=== PATIENT | male | born 1960 | race Caucasian/White ===

== ENCOUNTER 2018-09-23 09:37 | Inpatient (IN) | payer BC ==
[2018-09-23] MEDS ORDERED: Aspirin 81 mg CHEW TAB* 81 MG TAB.CHEW PO ONE (09:51)
--- NOTE | 2018-09-23 09:52 | ED ---
HPI Chest Pain - HPI Summary HPI Summary: This pt is a 58 y/o male presenting to [facility] c/o intermittent chest pain since 8 weeks ago. Pt states the first incident occurred while he was walking to an appointment. He notes he had cold then and had been doing a lot of cardio. Denies hx of asthma. Today he states he woke up feeling uncomfortable with chest pain. He describes chest pain as pressure and unable to take a deep full breath. Denies fever, nausea, vomiting, diaphoresis, SOB, lightheadedness. Pr reports recent stress with family for the past 8 weeks. Currently he rates his pain 1/10 in severity. PMHx: HTN. Denies hx of OR. Pt quit smoking 10 years ago and quit drinking alcohol 15 years ago. FHx of OR but not at his age of 58. - History of Current Complaint Chief Complaint: EDChestPainROMI Time Seen by Provider: 09/23/18 09:44 Hx Obtained From: Patient Onset/Duration: Started Weeks Ago, Still Present Timing: Intermittent, Lasting Weeks Current Severity: Mild Pain Intensity: 1 Pain Scale Used: 0-10 Numeric Chest Pain Location: Diffuse Chest Pain Radiates: No Character: Pressure/Squeezing - Pressure Aggravating Factor(s): Exertion Alleviating Factor(s): Nothing Associated Signs and Symptoms: Positive: Chest Pain, Recent Stress. Negative: Dizziness, Shortness of Breath, Fever, Chills, Lightheadedness, Diaphoresis, Nausea, Vomiting - Allergy/Home Medications Allergies/Adverse Reactions: Allergies Allergy/AdvReac Type Severity Reaction Status Date / Time No Known Allergies Allergy Verified 09/23/18 09:43 Home Medications: Home Medications Dexmethylphenidate HCl [Focalin] 2.5 mg PO BID 09/23/18 [History Confirmed 09/23] Eszopiclone (NF) [Lunesta (NF)] 3 mg PO BEDTIME 09/23/18 [History Confirmed ] Gabapentin CAP(*) [Neurontin 300 CAP(*)] 900 mg PO BEDTIME 09/23/18 [History Confirmed 09/23/18] Ibuprofen TAB* [Advil TAB*] 200 mg PO Q6H PRN 09/23/18 [History Confirmed ] Lisinopril TAB* [Prinivil TAB*] 5 mg PO DAILY 09/23/18 [History Confirmed ] Zolpidem TAB* [Ambien TAB*] 2.5 mg PO BEDTIME PRN 09/23/18 [History Confirmed ] PMH/Surg Hx/FS Hx/Imm Hx Endocrine/Hematology History: Denies: Hx Diabetes Cardiovascular History: Reports: Hx Hypertension Respiratory History: Denies: Hx Asthma Infectious Disease History: No Infectious Disease History: Reports: Traveled Outside the [place] in Last 30 Days - [place] - Family History Known Family History: Negative: Cardiac Disease, Hypertension, Diabetes Family History: FHx of OR but not at his current age of 58. - Social History Alcohol Use: None Alcohol Amount: quit drinking 15 years ago Substance Use Type: Reports: None Smoking Status (MU): Former Smoker - quit 10 years ago Review of Systems Negative: Fever, Chills, Skin Diaphoresis Positive: Chest Pain Negative: Shortness Of Breath Negative: Vomiting, Nausea Neurological: Other - NEG: dizziness, lightheadedness All Other Systems Reviewed And Are Negative: Yes Physical Exam - Summary Physical Exam Summary: VITAL SIGNS: Reviewed. GENERAL: Patient is a well-developed and nourished male who is lying comfortable in the stretcher. Patient is not in any acute respiratory distress. HEAD AND FACE: No signs of trauma. No ecchymosis, hematomas or skull depressions. No sinus tenderness. EYES: PERRLA, EOMI x 2, No injected conjunctiva, no nystagmus. EARS: Hearing grossly intact. Ear canals and tympanic membranes are within normal limits. MOUTH: Oropharynx within normal limits. NECK: Supple, trachea is midline, no adenopathy, no JVD, no carotid bruit, no c- spine tenderness, neck with full ROM. CHEST: Symmetric, no tenderness at palpation LUNGS: Clear to auscultation bilaterally. No wheezing or crackles. CVS: Regular rate and rhythm, S1 and S2 present, no murmurs or gallops appreciated. ABDOMEN: Soft, non-tender. No signs of distention. No rebound, no guarding, and no masses palpated. Bowel sounds are normal. EXTREMITIES: FROM in all major joints, no edema, no cyanosis or clubbing. NEURO: Alert and oriented x 3. No acute neurological deficits. Speech is normal and follows commands. SKIN: Dry and warm Triage Information Reviewed: Yes Vital Signs On Initial Exam: Initial Vitals Temp Pulse Resp BP Pulse Ox 97.5 F 71 16 185/110 98 09/23/18 09:38 09/23/18 09:38 09/23/18 09:38 09/23/18 09:38 09/23/18 09:38 Vital Signs Reviewed: Yes Diagnostics - Vital Signs Vital Signs Temp Pulse Resp BP Pulse Ox 09/23/18 09:38 97.5 F 71 16 185/110 98 - Laboratory Result Diagrams: 09/23/18 09:48 09/23/18 09:48 Lab Statement: Any lab studies that have been ordered have been reviewed, and results considered in the medical decision making process. - Radiology Chest XR Radiology Interpretation Completed By: Radiologist Summary of Radiographic Findings: IMPRESSION: No active cardiopulmonary disease. Dr. Newberry has reviewed this report. - EKG 09:53 Cardiac Rate: NL - at 66 bpm EKG Rhythm: Sinus Rhythm Summary of EKG Findings: No ST elevations. 10:31 Cardiac Rate: NL - at 63 bpm EKG Rhythm: Sinus Rhythm Summary of EKG Findings: T wave inversions in leads III and aVF. ST depressions in V5 and V6. Chest Pain Course/Dx - Course Assessment/Plan: This pt is a 58 y/o male presenting to [facility] c/o intermittent chest pain since 8 weeks ago. Pt states the first incident occurred while he was walking to an appointment. He notes he had cold then and had been doing a lot of cardio. Denies hx of asthma. Today he states he woke up feeling uncomfortable with chest pain. He describes chest pain as pressure and unable to take a deep full breath. Denies fever, nausea, vomiting, diaphoresis, SOB, lightheadedness. Pr reports recent stress with family for the past 8 weeks. Currently he rates his pain 1/10 in severity. PMHx: HTN. Denies hx of OR. Pt quit smoking 10 years ago and quit drinking alcohol 15 years ago. FHx of OR but not at his age of 58. Blood work without any significant abnormality except for troponin of 0.44. EKG shows normal sinus rhythm without any ST elevations. Patient has inverted T waves in leads I and aVL, and ST depressions in V4 and V5. Chest x-ray impression: No active cardiopulmonary disease. Initially the patient reported that the pain was only 1 out of 10. In the ED course the patient was given aspirin, metoprolol and nitroglycerin. After these medications the pain has subsided. Because of increased troponin I gave the patient heparin. At this point I discussed my physical exam, findings and test results with Dr. Rodriguez from cardiology who will come and consult for this patient. The patient continues to be asymptomatic and he is hemodynamically stable. I discussed my physical exam, findings and test results with Dr. Anglin from the hospitalist services and he agrees to admit patient to his services. Patient is hemodynamically stable, alert and oriented x 3. - Chest Pain Differential Diagnosis/HQI/PQRI: Acute OR, ACS, Angina, Aortic Aneurysm, CHF, Chest Wall, GI Disease, Lower Respiratory Infection, Pulmonary Edema - Diagnoses Provider Diagnoses: Acute coronary syndrome, NSTEMI (non-ST elevated myocardial infarction) - Provider Notifications Discussed Care Of Patient With: Raymundo Rodriguez Time Discussed With Above Provider: 10:45 Instructed by Provider To: Other - I discussed the case with Dr. Rodriguez, geography department chair, who reports EKG is not a STEMI and he will come see the pt in the ED. [11:31] I discussed with Dr. Anglin, hospitalist, who accepted pt for admission. - Critical Care Time Critical Care Time: 75-104 min Discharge - Sign-Out/Discharge Documenting (check all that apply): Patient Departure - Admit to [facility] - Discharge Plan Condition: Stable Disposition: ADMITTED TO [facility] - Billing Disposition and Condition Condition: STABLE Disposition: Admitted to [facility] - Attestation Statements Document Initiated by Meg: Yes Documenting Scribe: Sylvia Damon Provider For Whom Meg is Documenting (Include Credential): Janak Newberry MD Scribe Attestation: I, Sylvia Damon, scribed for Janak Newberry MD on 09/23/18 at 1828. Scribe Documentation Reviewed: Yes Provider Attestation: The documentation as recorded by the Sylvia ojeda accurately reflects the service I personally performed and the decisions made by me, Janak Newberry MD
[2018-09-23 10:00] LABS: ABS Basophils 0 10^3/ul (0-0.2); ABS Eosinophils 0.1 10^3/ul (0-0.6); ABS Lymphocytes 1.5 10^3/ul (1.0-4.8); ABS Monocytes 0.6 10^3/ul (0-0.8); ABS Neutrophils 2.8 10^3/ul (1.5-7.7); ABS Nucleated RBC 0 10^3/ul; Eosinophil % 1.3 % (0-6); Hematocrit 43 % (42-52); Hemoglobin 14.7 g/dl (14.0-18.0); Lymphocyte % 29.1 % (25-47); Mean Corpuscular HGB Conc 34 g/dl (31-36); Mean Corpuscular Hemoglobin 31 pg (27-31); Mean Corpuscular Volume 90 fL (80-94); Mean Platelet Volume 8.1 fL (7.4-10.4); Nucleated Red Blood Cells % 0.1; Platelet Count 230 10^3/ul (150-450); Red Blood Count 4.81 10^6/ul (4.00-5.40); Red Cell Distribution Width 13 % (10.5-15)
[2018-09-23 10:21] LABS: EGFR Non-African American 65.1 (>60)
[2018-09-23] MEDS ORDERED: Nitroglycerin TAB 0.4 MG* 0.4 MG TAB SL ONE (10:28)
[2018-09-23] MEDS ORDERED: Metoprolol Tartrate IV* 1 MG/ML 5 ML VIAL IV PRN (10:28)
[2018-09-23] MEDS ORDERED: Metoprolol Tartrate TAB* 25 MG PO ONE (10:30)
[2018-09-23] MEDS ORDERED: Nitroglycerin TAB 0.4 MG* 0.4 MG TAB ONE (10:31)
[2018-09-23] MEDS ORDERED: Metoprolol Tartrate TAB* 25 MG ONE (10:31)
[2018-09-23] MEDS ORDERED: Heparin for STEMI(*) 5,000 UNITS/ML 1 ML VIAL IV ONE (10:46)
[2018-09-23] MEDS ORDERED: Diazepam TAB(*) 5 MG PO PRN (11:15)
[2018-09-23] MEDS ORDERED: diPHENhydraMINE PO* 25 MG PO PRN (11:15)
[2018-09-23] MEDS ORDERED: NS 0.9% 1000 ML* 1,000 ML IV SCH (11:15)
[2018-09-23] MEDS ORDERED: Ondansetron INJ* 2 MG/ML VIAL IV PRN (11:53)
[2018-09-23] MEDS ORDERED: Acetaminophen TAB* 325 MG PO PRN (11:53)
[2018-09-23] MEDS ORDERED: Nitroglycerin 2% OINT* 1 GM PAK TOPICAL SCH (11:55)
[2018-09-23] MEDS ORDERED: Heparin DRIP 25,000 UNITS(*) 25,000 UNITS/500 ML BAG IV SCH (12:00)
[2018-09-23] MEDS ORDERED: Iohexol 350 (CONTRAST) 200 ML MDV IV ONE (13:24)
[2018-09-23] MEDS ORDERED: Heparin 2 UNITS/ML IVPREMIX* 2,000 ML IV ONE (13:24)
[2018-09-23] MEDS ORDERED: Lidocaine 1% INJ* 10 MG/ML 30 ML SDV ONE ×2 (13:24→14:22)
[2018-09-23] MEDS ORDERED: Midazolam* 1 MG/ML 10 ML VIAL (10 MG) ONE (14:21)
[2018-09-23] MEDS ORDERED: Heparin(*) 1000 UNIT/ML 10 ML VIAL CATH LAB IV ONE (14:21)
[2018-09-23] MEDS ORDERED: fentaNYL* 50 MCG/ML 2 ML VIAL (100 MCG VIAL) ONE (14:21)
[2018-09-23] MEDS ORDERED: VERAPAMIL 2.5 MG/ML 2 ML VIAL ** 5 mg/2 ml ONE (14:21)
[2018-09-23] MEDS ORDERED: nitroGLYCERIN DRIP* 25,000 MCG/250 ML BTL ONE (14:22)
--- NOTE | 2018-09-23 14:34 | CONS ---
CC: Dr. Alberto Nobles * CARDIOLOGY CONSULTATION: DATE OF CONSULT: 09/23/18 INDICATION FOR CONSULT: Acute coronary syndrome and chest pain. HISTORY OF PRESENT ILLNESS: The patient is a 58-year-old gentleman with little past medical history, who presents with crescendo angina. The patient states that this summer he was doing CrossFit and exercising regularly and just noticing that his aerobic capacity was not increasing and he was unable to run his usual distances. In July, he started having chest pain with exertion that would stop with rest. The patient was seen by his primary care physician. A pulmonary evaluation was unremarkable. The patient was scheduled for stress test in the near future. The patient states this morning he woke up and was having severe chest pain, some of it was epigastric discomfort. It was similar to the discomfort he was having with exertion. The patient decided to come to the emergency room. On arrival to the emergency room, his EKG demonstrates normal sinus rhythm with J point elevation, also with T-wave inversions in the inferior leads. The patient is currently pain-free. His initial troponin level was 0.44. PAST MEDICAL HISTORY: Unremarkable. PAST SURGICAL HISTORY: Tonsillectomy at age 13. MEDICATIONS: None. ALLERGIES: None. FAMILY HISTORY: His father has an extensive cardiac history with coronary artery bypass surgery and stenting, also with a pacemaker. Mother has a history of Alzheimer's. SOCIAL HISTORY: He is . He exercises on a regular basis. He denies tobacco or alcohol use. REVIEW OF SYSTEMS: Negative for fevers and chills. Negative for changes in his bowel or bladder habits. The other 12-point review is unremarkable. PHYSICAL EXAM: Height is 5 feet 6 inches, weight is 150 pounds, heart rate is 68, blood pressure 140/97, respiratory rate is 13, oxygen saturation 97% on room air. Sclerae anicteric. Oropharynx is pink without erythema. Carotids are 2+ without bruits. JVD is normal. Thyroid is normal. Cardiac Exam: S1, S2 without any murmurs, rubs, or gallops. Lungs are clear to auscultation bilaterally. There is no dullness to percussion. Abdomen is soft, nontender, nondistended with normoactive bowel sounds. Extremities show no edema. He has 2+ pulses throughout. The patient is awake, alert, and oriented. He moves all 4 extremities equally. DIAGNOSTIC STUDIES/LAB DATA: CBC within normal limits. Chemistries within normal limits. BNP is 37. TSH 1.1. Troponin 0.44. EKG as described above. IMPRESSION: This is a 58-year-old gentleman with a strong family history of coronary artery disease, who was admitted to the hospital with crescendo angina. His initial troponin level was 0.44. The patient is being admitted with an acute coronary syndrome. RECOMMENDATIONS: The patient will be started on heparin, beta-blockers, aspirin. The patient will undergo cardiac catheterization. The risks and benefits of the cardiac catheterization were described in great detail and the patient is willing to proceed. Further recommendations pending the results of his catheterization. [id number]/[facility] #: [id number] [place]
[2018-09-23] MEDS ORDERED: Heparin VIAL(*) 5000 UNITS/ML VIAL (FIVE THOUSAND) IV SCH (15:00)
--- NOTE | 2018-09-23 15:54 | HP ---
CC: Dr. Rodriguez; Dr. Nobles * HISTORY AND PHYSICAL: DATE OF ADMISSION: 09/23/18 PRIMARY CARE PROVIDER: Dr. Nobles. ATTENDING PROVIDER: Dr. Anglin.* (DICTATED BY DARÍO PEARCE NP) CHIEF COMPLAINT: Chest pain. HISTORY OF PRESENT ILLNESS: Mr. Soriano is a 58-year-old male patient. He carries a history of hypertension only. He comes in today stating that he has been having intermittent chest pain and he has really been noticing since over the summer he does CrossFit pretty routinely and he has noticed that his stamina and his activity level has really decreased starting the end of June and into the July and it was getting harder for him to improve his stamina and at one point he was noticing that he could not do as much. He thought may be it was related to a respiratory component. He did note that in July at times he was having exertional chest tightness and chest pain. He felt like it was a squeezing in his chest. He thought it may be asthma related. He did have a former history of smoking. He did have a cold in July, which made things much worse. He sought care with his primary, the patient sounds like underwent PFTs, which were normal. He has noticed that throughout August and throughout the early weeks here in September, he has had more and more episodes with chest discomfort particularly with exertion. When he stops, he gets better. He has noticed that he has had decreased exercise tolerance and he states he has not been feeling like his stamina has been improving despite him trying to exercise. He noticed that over the weekend, he was in [place]. He tried walking just one mile and he could not even get half way and he again had to sit down, he was in noticeable pain, he was having chest discomfort , he was not feeling good. His was concerned. This morning, he woke up, he just started getting up to take care of the dogs and helping them and doing simple activities around the houses and he got chest pressure again and he felt short of breath. He did not get sweaty and nauseous with it, but he was concerned that sometime more serious might be going on. His primary did touch- base with him on and had a stress test set up for him in the outpatient setting. However, because of the discomfort was not going away and it was becoming more frequent and apparent particularly this weekend and intense , he decided to come into the ER today to be evaluated. When he came in, it was noted that he had abnormal-appearing EKG. In addition to this, he had an elevated troponin, but he was chest pain free and because of this, we are asked to evaluate for admission. There have been no reports of fever recently. No vomiting or diarrhea and no change in medications, but because of his concerning story for acute coronary syndrome, we are asked to evaluate for admission. PAST MEDICAL HISTORY: Significant for hypertension. PAST SURGICAL HISTORY: Significant for appendectomy. HOME MEDICATIONS: According to the list that was obtained and provided include: 1. Advil 200 mg every 6 hours as needed. 2. Ambien 2.5 mg at bedtime as needed. 3. Gabapentin 500 mg p.o. at bedtime. 4. Lisinopril 5 mg p.o. daily. 5. Lunesta 3 mg p.o. at bedtime. 6. Focalin 2.5 mg p.o. b.i.d. ALLERGIES TO MEDICATIONS: Include no known drug allergies. FAMILY HISTORY: Both his parents have CAD. His parents had open heart surgery but they were in their later stages of life when they were in their 70s and 80s. SOCIAL HISTORY: He is a former smoker, he quit about 11 years ago. He does not drink alcohol. He denies recreational drug abuse. His surrogate decision maker is his . REVIEW OF SYSTEMS: There is no documented fever. He denies having any significant weight change. There is no double vision. He denies having any ear discharge. There is no rhinorrhea. He denies having any sore throat. There is no thyroid enlargement. Denies having any chest pain currently, but there is chest pain from my HPI. There was shortness of breath with exertion, but no orthopnea and no nocturnal dyspnea. He denies having any abdominal pain. There was no nausea, no vomiting. There is no dysuria. There is no frequency. There is no seizure, no loss of consciousness, no pruritus, and no skin ulcerations. Review of 14 systems completed, all others negative. PHYSICAL EXAMINATION GENERAL: At this time, Mr. Soriano is a 58-year-old male patient. He is sitting in the ED stretcher. He does not appear to be in any acute distress. He appears to be well nourished and well developed. VITAL SIGNS: Blood pressure 140/97 with a pulse 59, respirations 18, O2 sat 97% , temperature 97.5. HEENT: Head atraumatic, normocephalic. Eyes: EOMs are intact. Sclerae anicteric and not pale. Throat: Oral mucosa appears to be moist. No oropharyngeal erythema. NECK: Supple. LUNGS: His lungs were clear to auscultation bilaterally. He has no wheezes, rales, or rhonchi. HEART: Sounds S1, S2. He has a regular rate and rhythm. There were no murmurs , rubs, or gallops. ABDOMEN: Soft. It was flat. It was nontender. Bowel sounds were present. EXTREMITIES: Pulses were 2+ throughout. He is able to move all 4 extremities with 5/5 strength. NEUROLOGIC: The patient is awake, he is alert, he is oriented x3. He had no gross focal deficits. SKIN: Grossly intact. DIAGNOSTIC STUDIES/LAB DATA: Labs today reveal WBC of 5.0, RBC of 4.81, hemoglobin of 14.7, hematocrit 43, platelet count of 230. His PTT was 30.6. His sodium was 137, potassium was 4.1, chloride of 104, bicarb 27, BUN 18, creatinine 0.16. Glucose was 93, lactic 1.4, calcium 10.0, mag 1.9, total bili 0.4, AST 36, ALT 25, alk phos 67, CK 108, CK-MB 3.9, troponin 0.44, BNP of 37, albumin of 4.5, TSH of 1.11. He did have a chest x-ray obtained today. Chest x-ray today shows no acute cardiopulmonary disease. He had an EKG obtained today, 2 EKGs, first one at 09: 53 shows a normal sinus rhythm, rate of 66. It looks like he has J-point elevation in leads V2 and V1, he had inverted T-waves in lead III along with aVF and flattened lead II. Old medical records were reviewed. ASSESSMENT AND PLAN: Mr. Soriano is a 58-year-old male patient coming into the ED today with complaints of chest discomfort and exertional chest pain. It is becoming more pronounced since July. He came into the ED today, it was found that his troponin was elevated and because of this and his concerning story, we were asked to evaluate for admission. He will be admitted under inpatient status for: 1. Acute coronary syndrome. I suspect that the patient does have an angina that is becoming a crescendo angina. Plan: I did touch-base with Dr. Rodriguez. The plan would be if the patient has received aspirin, he got a bolus of heparin , I will start him on an heparin drop. He received beta-ok here in the ED. He is chest pain free. His blood pressure though was 140s to 150s systolics, so I am going to add some nitrates up to his chest. He is chest pain free currently. I will cycle his troponins. He will be NPO. The plan is for a heart catheterization today with Dr. Rodriguez and he will be placed in the ICU for this ad we will continue to follow. I am checking lipid panels, A1c. We will cycle his troponins and I did order an echo. We will get an EKG in the morning. 2. Hypertension. We will restart his lisinopril. I will put him on nitrates and we will continue to monitor this. We will continue medications as prescribed. 3. DVT prophylaxis: He will be placed on a heparin drip. 4. Code status. Full code. 5. Fluids, electrolytes, and nutrition. He is NPO pending the heart catheterization. TIME SPENT: Time spent on the admission 60 minutes, greater than half the time spent [id number] with the patient, obtaining my history and physical, the other half the time spent going over the plan of care with the patient, implementing the plan of care. I discussed the plan of care with my attending Dr. Anglin. DARÍO PEARCE, STACIE [id number]/[facility] #: [id number] [place]
[2018-09-23] MEDS ORDERED: Atorvastatin* 40 MG TAB PO SCH (17:00)
[2018-09-23 18:34] VITALS: BP 167/99
[2018-09-23] MEDS ORDERED: Metoprolol Tartrate TAB* 25 MG PO SCH (21:00)
[2018-09-23] MEDS ORDERED: Gabapentin CAP(*) 300 MG PO SCH (21:00)
[2018-09-23] MEDS ORDERED: Zolpidem TAB* 10 MG PO SCH (21:00)
[2018-09-24] MEDS ORDERED: Aspirin 81 mg CHEW TAB* 81 MG TAB.CHEW PO SCH (09:00)
[2018-09-24] MEDS ORDERED: Lisinopril TAB* 5 MG PO SCH (09:00)
--- NOTE | 2018-09-24 11:38 | TRS ---
CC: Dr. Nobles; Dr. Rodriguez; Dr. Jamison * TRANSFER SUMMARY: DATE OF ADMISSION: 09/23/18 DATE OF TRANSFER: 09/23/18 ATTENDING PHYSICIAN WHILE IN THE HOSPITAL: Dr. Anglin * (report dictated by Darío Chaves NP). CONSULTING COCONUT JELLY ROLLER: Dr. Rodriguez. ACCEPTING PHYSICIAN: Dr. Jamison. ACCEPTING FACILITY: [facility]. HISTORY OF PRESENT ILLNESS: I refer you to my H and P for further details and Dr. Rodriguez's consult. In short, Mr. Soriano is a 58-year-old male patient that presented earlier today with complaints of chest pain that had been escalating since late July. Today, he came in because the pain was very significant with minimal exertion. Ultimately, he was admitted due to the fact that he sounds like he had acute coronary syndrome with crescendo angina and he had elevated troponins. He was taken to the heart catheterization, which did show triple-vessel disease. At that point, the patient was transferred back to the ICU and transfer was requested to higher level of care for open heart surgery, which Dr. Rodriguez facilitated the transfer to Dr. Jamison service at [facility]. Refer to Dr. Rodriguez's cath report for further details. The patient was transferred to the ICU. He is stable. He is remaining on heparin drip and normal saline. Because of the fact he had triple- vessel disease, he was required to be transferred to higher level of care. TRANSFER DIAGNOSES: Include: 1. Hypertension. 2. Coronary artery disease. 3. Triple-vessel disease, requiring open heart surgery. CONDITION ON TRANSFER: Stable. MEDICATIONS ON TRANSFER: 1. Normal saline at 125 cc an hour. 2. Aspirin 81 mg daily. 3. Lipitor 40 mg daily. 4. Gabapentin 900 mg at bedtime. 5. Heparin drip per protocol. 6. Lisinopril 5 mg daily. 7. Metoprolol tartrate 12.5 mg p.o. b.i.d. 8. Nitroglycerin ointment 1/2 inch topically at 0800 and 1400. 9. Zofran 4 mg IV every 6 hours as needed. 10. Ambien 10 mg p.o. at bedtime as needed. PHYSICAL EXAMINATION ON TRANSFER: Blood pressure 145/87, pulse 61, respirations 14, O2 sat 96%, temperature 99.1. General: At this time, Mr. Soriano is a 58- year-old male patient. He is sitting in the ICU bed. He does not appear to be in any acute distress. He appears to be well nourished and well developed. HEENT: Head: Atraumatic, normocephalic. Eyes: EOMs are intact. Sclerae anicteric and not pale. Neck was supple. Throat: Oral mucosa appears to be moist. No oropharyngeal erythema. Heart: Sounds S1, S2 and regular rate and rhythm. No murmurs, rubs, or gallops. Lungs: Clear to auscultation bilaterally. There were no wheezes, rales, or rhonchi. Abdomen was soft, flat, nontender. Bowel sounds are present. Extremities: Pulses were 2+ throughout and moving all 4 extremities with 5/5 strength. Neurologically, he is awake, alert, and oriented x3. No gross focal deficits. Skin: Grossly intact. LABS ON TRANSFER: WBC 5.0, RBC 4.81, hemoglobin 14.7, hematocrit of 43, platelet count of 230. His PTT was 30.6. His sodium was 137, potassium 4.1, chloride 104, bicarb of 27, BUN was 18, creatinine 1.16, glucose 93, lactate 1.4 , calcium 10, mag 1.9, total bili 0.4, AST 36, ALT 25, alk phos 67, CK 108. His troponin was 0.44, it trended up to 0.66. TSH was normal. He had a chest x-ray today, impression: No active cardiopulmonary disease. EKG today showing a normal sinus rhythm with what appeared to be J-point elevation in V1, V2, and V3, but he did have T-wave inversions in II, III, and aVF, rate of 63. Old medical records were reviewed. CONDITION ON TRANSFER: Stable. He will be transferred to [facility], which has been setup by Dr. Rodriguez to Dr. Jamison's service for an open heart surgery. TIME SPENT: On the transfer was 60 minutes, greater than half the time spent face- to-face with the patient, going over the rationale for transfer; other than half time spent implementing the transfer. I did discuss this with my attending, Dr. Anglin, he is agreement. DARÍO CHAVES NP [id number]/[facility] #: [id number] [place]
--- NOTE | 2018-09-24 15:19 | CATH ---
CC: Dr. Alberto Nobles; Dr. Yvon Jamison, [facility], Cardiothoracic Surgery Depa rtment. CARDIAC CATHETERIZATION: DATE OF PROCEDURE: 09/23/18 PROCEDURE: Cardiac catheterization including right radial access, left ventriculogram, left heart ca theterization, coronary angiography. INDICATION: Acute coronary syndrome. The patient is a 58-year-old gentleman with a history of hypertension, strong family history of coron cait artery disease who was admitted to the hospital with crescendo angina. He had EKG which showed T -wave inversions. His troponin level was 0.44. Cardiac catheterization was recommended. DESCRIPTION OF PROCEDURE: The patient was brought to the cardiac catheterization lab in a fasting st ate. Informed consent had been obtained prior to the procedure. All labs have been reviewed. The pa tient was placed supine on the catheterization table. His right radial artery was prepped and draped in the usual fashion. 1% lidocaine was used for local anesthesia. The radial artery was entered by Seldinger technique and a guidewire was placed. Over the guidewire, a 6-[place] Sheath introducer wa s placed. An infusion of verapamil and nitroglycerin was used in the sheath itself. The patient und erwent left ventriculogram and coronary angiography using a 6-[place] TIG catheter. At the end of the procedure, all sheaths and catheters were removed. The patient tolerated the procedure well with no complications. A total of 85 cc of Omnipaque dye was used, a total of 6-minutes of fluoro time was used. FINDINGS: HEMODYNAMICS: Central aortic blood pressure 117/64 with a mean of 96, left ventricular pressure of 1 14/4 with an end-diastolic pressure of 19. LEFT VENTRICULOGRAM: Left ventricle was normal in size and systolic function. Estimated ejection fra ction 60%. There were no focal wall-motion abnormalities. There was no mitral regurgitation. Aortic valve and ascending aorta were normal. CORONARY ARTERIES: 1. Left main artery: The left main was normal in size. It bifurcated into the LAD and circumflex. There was no evidence of stenosis. 2. Left anterior descending artery: The LAD was normal in size. It had mild calcification to the p roximal vessel. The proximal LAD had an eccentric 75% to 80% stenosis. The mid LAD had a complex 99 % stenosis involving both the LAD and the first diagonal vessel. The remainder of the LAD and the re mainder of the first diagonal vessel were without disease. 3. Left circumflex artery: The circumflex artery was normal in size. It gave off 2 obtuse marginal branches, both of which were significantly branching in their orientation. The first obtuse margina l had a proximal 75% stenosis and then had a branch point after that which involved a 50% stenosis to the upper branch of the OM1 vessel. The OM2 vessel was without disease. After that, the circumflex artery was occluded. 4. Right coronary artery: The RCA was a large dominant vessel, gave off the PDA. The proximal right coronary artery had a 50% stenosis followed by an aneurysmal formation. The right coronary artery c ontinued on and gave off an RV marginal branch that had a 99% stenosis. The distal RCA and PDA were subtotally occluded with CHELE-1 flow. IMPRESSION: 1. Normal LV size and systolic function. 2. Critical stenosis to the proximal and mid left anterior descending artery involving the first sarita gonal vessel. 3. Severe stenosis to the OM1 vessel, off the left circumflex artery. 4. Subtotally occluded right coronary artery with CHELE-1 flow to the RCA and posterior descending ar moris. RECOMMENDATIONS: The patient will be admitted to the hospital. The patient will be transferred to [facility] for evaluation for coronary bypass surgery. [id number]/[facility] #: [id number]
== END 2018-09-23 18:15 | disposition short-term general hospital (02) | DRG 192 ==
LOC: ED 09:37 → ICU 11:51
PROVIDERS: ADMIT Student in an Organized Health Care Education/Training Program; ATTEND Student in an Organized Health Care Education/Training Program
PROC: 4A023N7 Measurement of Cardiac Sampling and Pressure, Left Heart, Percutaneous Approach (ICD-10-PCS; 2018-09-23)
PROC: B2151ZZ Fluoroscopy of Left Heart using Low Osmolar Contrast (ICD-10-PCS; 2018-09-23)
PROC: B2111ZZ Fluoroscopy of Multiple Coronary Arteries using Low Osmolar Contrast (ICD-10-PCS; principal; 2018-09-23 14:00)
DX: I25.110 Atherosclerotic heart disease of native coronary artery with unstable angina pectoris (principal); I24.9 Acute ischemic heart disease, unspecified; I10 Essential (primary) hypertension; Z87.891 Personal history of nicotine dependence; Z82.49 Family history of ischemic heart disease and other diseases of the circulatory system; Z79.82 Long term (current) use of aspirin
CPT/HCPCS: 36415; 71045; 80053; 82550; 82553; 83605; 83735; 83880; 84443; 84484; 85025; 85347; 85730; 87641; 93005; 93458; 99156; 99157; 99285; A9270-GY; J1644; J2250; J3010

== ENCOUNTER 2019-05-13 08:09 | Observation (INO) | payer BC ==
[2019-05-13] MEDS ORDERED: diPHENhydraMINE PO* 25 MG ONE (08:57)
[2019-05-13] MEDS ORDERED: Diazepam TAB(*) 5 MG ONE (08:57)
[2019-05-13 09:17] LABS: ABS Eosinophils 0.1 10^3/ul (0-0.6); ABS Lymphocytes 1.8 10^3/ul (1.0-4.8); ABS Monocytes 0.5 10^3/ul (0-0.8); ABS Neutrophils 3.2 10^3/ul (1.5-7.7); Eosinophil % 1.6 %; Hematocrit 43 % (42-52); Hemoglobin 14.9 g/dL (14.0-18.0); Lymphocyte % 31.6 %; Mean Corpuscular HGB Conc 34 g/dL (31-36); Mean Corpuscular Hemoglobin 31 pg (27-31); Mean Corpuscular Volume 89 fL (80-94); Mean Platelet Volume 9.1 fL (7.4-10.4); Nucleated Red Blood Cells % 0.1; Platelet Count 237 10^3/uL (150-450); Red Blood Count 4.87 10^6 /uL (4.18-5.48); Red Cell Distribution Width 13 % (10-15); White Blood Count 5.6 10^3/uL (3.5-10.8)
[2019-05-13 09:36] LABS: BUN/Creatinine Ratio 19.8 (8-20); Calcium 10.2 mg/dL (8.6-10.3); EGFR African American 87.4 (>60); EGFR Non-African American 72.3 (>60); Potassium 4.4 mmol/L (3.5-5.0)
[2019-05-13 09:43] LABS: Activated Partial Thrombo Time 34.2 seconds (26.0-38.0); INR 1.01 (0.82-1.09)
[2019-05-13] MEDS ORDERED: Midazolam* 1 MG/ML 5 ML VIAL (5 MG) ONE (09:54)
[2019-05-13] MEDS ORDERED: Lidocaine 1% INJ* 10 MG/ML 30 ML SDV ONE (09:54)
[2019-05-13] MEDS ORDERED: Iohexol 350 (CONTRAST) 200 ML MDV IV ONE (09:54)
[2019-05-13] MEDS ORDERED: Heparin 2 UNITS/ML IVPREMIX* 3,000 UNIT/1,500 ML BAG IV ONE (09:54)
[2019-05-13] MEDS ORDERED: fentaNYL* 50 MCG/ML 2 ML VIAL (100 MCG VIAL) ONE ×2 (09:54→11:48)
[2019-05-13] MEDS ORDERED: nitroGLYCERIN DRIP* 0 MCG/0 ML BTL ONE (09:59)
[2019-05-13] MEDS ORDERED: Heparin(*) 1000 UNIT/ML 10 ML VIAL CATH LAB IV ONE ×2 (09:59→11:53)
[2019-05-13] MEDS ORDERED: Aspirin 81 mg CHEW TAB* 81 MG TAB.CHEW ONE (10:49)
[2019-05-13] MEDS ORDERED: Ticagrelor* 90 MG TAB PO ONE (10:49)
[2019-05-13] MEDS ORDERED: nitroGLYCERIN DRIP* 25,000 MCG/250 ML BTL ONE (11:55)
[2019-05-13] MEDS ORDERED: Nitroglycerin TAB 0.4 MG* 0.4 MG TAB SL PRN (12:26)
[2019-05-13] MEDS ORDERED: Zolpidem TAB* 5 MG PO PRN (12:30)
[2019-05-13] MEDS ORDERED: Gabapentin CAP(*) 300 MG PO PRN (12:30)
[2019-05-13] MEDS ORDERED: NS 0.9% 1000 ML** 1,000 ML IV SCH (12:30)
[2019-05-13] MEDS ORDERED: Atropine SYRINGE* 0.1 MG/ML 10 ML SYRINGE (1 MG) ONE (13:44)
[2019-05-13 16:22] LABS: Creatine Kinase 73 U/L (10-223)
[2019-05-13 16:24] LABS: Troponin I 0.17 ng/mL (<0.04)
--- NOTE | 2019-05-13 18:48 | CATH ---
cC: Dr. Gill Vaca; Dr. Alberto Nobles; Dr. Yvon Jamison * CARDIAC CATHETERIZATION REPORT: DATE OF PROCEDURE: 05/13/19 PROCEDURE: Cardiac catheterization. INDICATION FOR PROCEDURE: Chest pain, abnormal stress test, known coronary artery disease. The patient is a 58-year-old gentleman with a history of coronary artery disease , history of coronary artery bypass surgery in September of 2018. At that time, he had a COLEMAN to his LAD, saphenous vein graft to first diagonal, saphenous vein graft to OM1/OM2, and a saphenous vein graft to PDA/posterolateral branch. The patient has been doing well since his surgery. He has been exercising regularly; however, in the last 2 weeks or so, he has had a sudden decline in his exercise tolerance. The patient underwent an exercise nuclear stress test yesterday. At that time, he exercised for 9-1/2 minutes, he did have chest pain , he had positive ST segment depressions at peak exercise. His nuclear images showed a moderate to large area of ischemia to his anterior and lateral montiel. Cardiac catheterization was recommended. DESCRIPTION OF PROCEDURE: The patient was brought to the cardiac catheterization lab in a fasting state. Informed consent had been obtained prior to the procedure. All labs had been reviewed. The patient was placed supine on the procedure table. His femoral areas were prepped and draped in usual fashion. 1% lidocaine was used for local anesthesia. The right femoral artery was entered by a Seldinger technique and a 6-[place] sheath introducer was placed. The patient underwent coronary angiography using a 6-[place] JR4 catheter, a 6-[place] AR1 catheter, and a 6-[place] VONDA catheter. At the end of the procedure, the patient went on to stenting to his obtuse marginal branch. Please see Dr. Vaca' report for those details. There were no complications. A total of 4 minutes of fluoro time was used. A total of 80 cc of Omnipaque dye was used. FINDINGS: 1. Left main artery: The left main was normal in size. It bifurcated into the LAD and circumflex. There was no evidence of stenosis. 2. Left anterior descending artery: The LAD was normal in size. It gave off 2 diagonal vessels. The LAD itself was occluded after the second diagonal. The proximal portion of the LAD had a 90% stenosis. His first diagonal vessel was a small atretic vessel. His second diagonal vessel had previously been a large branch vessel off the LAD. Today's images show a small atretic vessel that has multiple stenoses and is subtotally occluded. 3. Left circumflex artery: The circumflex artery is normal in size. It gave off 3 obtuse marginal branches. The proximal circumflex is without disease. The first obtuse marginal branch had a proximal 90% stenosis. In the previous catheterization, the first obtuse marginal was a large branching vessel. The superior branch was at least 2.5 mm to 3 mm vessel. The inferior branch was a 3 mm vessel. Today, the superior branch is subtotally occluded. The inferior branch is stable. The second and third obtuse marginals were without disease. The circumflex itself did not have any significant disease. 4. Right coronary artery: The RCA is an occluded vessel with [id number]-ax-ysmpn collaterals, which are minimal. 5. Saphenous vein graft to the right coronary artery: The saphenous vein graft is patent and anastomosis to the PDA. There is normal filling of the PDA. There is no retrograde filling of the right coronary artery. After the PDA, the saphenous vein graft is occluded to the posterolateral branch. 6. Saphenous vein graft to the first diagonal is occluded at its origin. 7. Saphenous vein graft to the OM1, OM2 is occluded at its origin. 8. COLEMAN to the LAD is open and patent. The anastomosis is normal. There is collateral flow to the distal PDA off of the LAD. IMPRESSION: 1. Three-vessel coronary artery disease. 2. Saphenous vein graft to the occluded right coronary artery is open and patent to the PDA. The jump graft from the PDA to the posterolateral branch is occluded. 3. Saphenous vein graft to D1 occluded. 4. Saphenous vein graft to OM1, OM2 occluded. 5. COLEMAN to the LAD is open and patent. 6. Critical stenosis of first obtuse marginal of the left circumflex artery, at least a 90% stenosis. RECOMMENDATIONS: These films were reviewed in great detail with Dr. Vaca. The patient does have an atretic first diagonal vessel off of the LAD, also an atretic vessel of the superior branch of the OM1, which likely contributed significantly to the findings on his stress test. The patient does have a 90% stenosis to his OM1 vessel, which will be stented by Dr. Vaca. I will see the patient in followup. [id number]/[facility] #: [id number] [facility]OSPITALFanta
[2019-05-13] MEDS: Ticagrelor* 90 MG TAB PO SCH (20:33)
[2019-05-13] MEDS ORDERED: Zolpidem TAB* 10 MG PO PRN (21:48)
[2019-05-13 22:06] LABS: Creatine Kinase 80 U/L (10-223)
[2019-05-13 22:12] LABS: Troponin I 0.45 ng/mL (<0.04)
[2019-05-14 05:37] LABS: ABS Lymphocytes 1.3 10^3/ul (1.0-4.8); ABS Monocytes 0.6 10^3/ul (0-0.8); ABS Neutrophils 4.6 10^3/ul (1.5-7.7); Eosinophil % 0.7 %; Hematocrit 40 % (42-52); Hemoglobin 13.4 g/dL (14.0-18.0); Lymphocyte % 20.3 %; Mean Corpuscular HGB Conc 33 g/dL (31-36); Mean Corpuscular Hemoglobin 30 pg (27-31); Mean Corpuscular Volume 90 fL (80-94); Nucleated Red Blood Cells % 0.1; Platelet Count 224 10^3/uL (150-450); Red Blood Count 4.47 10^6 /uL (4.18-5.48); Red Cell Distribution Width 13 % (10-15); White Blood Count 6.5 10^3/uL (3.5-10.8)
[2019-05-14 05:54] LABS: Anion Gap 6 mmol/L (2-11); BUN/Creatinine Ratio 19.3 (8-20); Blood Urea Nitrogen 17 mg/dL (6-24); CO2 Carbon Dioxide 24 mmol/L (22-32); Calcium 9.2 mg/dL (8.6-10.3); Chloride 106 mmol/L (101-111); Creatine Kinase 78 U/L (10-223); EGFR African American 108.4 (>60); EGFR Non-African American 89.6 (>60); Glucose 90 mg/dL (70-100); Potassium 4.2 mmol/L (3.5-5.0); Sodium 136 mmol/L (135-145)
[2019-05-14 06:05] LABS: Troponin I 0.52 ng/mL (<0.04)
[2019-05-14] MEDS: Ticagrelor* 90 MG TAB PO SCH (08:39)
[2019-05-14] MEDS ORDERED: Aspirin 81 mg CHEW TAB* 81 MG TAB.CHEW PO SCH (09:00)
[2019-05-14] MEDS ORDERED: Lisinopril TAB* 5 MG PO SCH (09:00)
[2019-05-14] MEDS ORDERED: Atenolol TAB* 25 MG PO SCH (11:00)
[2019-05-14 11:27] LABS: Troponin I 0.29 ng/mL (<0.04)
[2019-05-14 12:37] VITALS: BP 131/75
--- NOTE | 2019-05-14 13:02 | DS ---
DISCHARGE SUMMARY: DATE OF ADMISSION: 05/13/19 DATE OF DISCHARGE: Pending no complications, tentatively 05/14/19. PRIMARY CARE PHYSICIAN: Dr. Alberto Nobles. PRIMARY SHINGLE SHEARING MACHINE OPERATOR: Dr. Raymundo Rodriguez. ADMITTING DIAGNOSES: 1. Abnormal stress test, here for elective left heart catheterization. 2. History of coronary artery disease with bypass in 2018. 3. History of hypertension. _DICTATION ENDS HERE_ MARGARETTE RUIZ NP [id number]/[facility] #: [id number] [place]
--- NOTE | 2019-05-14 13:10 | DS ---
CC: Dr. Alberto Nobles; Dr. Raymundo Rodriguez * DISCHARGE SUMMARY: DATE OF ADMISSION: 05/13/19 TENTATIVE DATE OF DISCHARGE: Pending no complications, 05/14/19. ATTENDING PHYSICIAN: Dr. Vaca, Cardiology.* (DICTATED BY MICK CAIN) ADMITTING DIAGNOSES: 1. Abnormal stress test with complaints of chest pain, here for elective catheterization. 2. History of coronary artery disease with bypass in 2014. 3. History of hypertension. 4. History of hyperlipidemia. DISCHARGE DIAGNOSES: 1. Abnormal stress test, status post drug-eluting stent to chinik circumflex, unfortunately it was complicated by distal dissection that was covered with drug - eluting stent, on aspirin, Brilinta, statin, and beta-ok was reinitiated. 2. History of coronary artery disease with bypass in 2018 with now 2 failed grafts, we will medically treat at this time. We will follow up with Dr. Raymundo Rodriguez. 3. History of hyperlipidemia, on statin therapy. Goal LDL less than 70. 4. History of hypertension. Blood pressure has been elevated during this course of hospital stay, atenolol 12.5 mg a day was reinitiated. PROCEDURES PERFORMED: The patient had elective left heart catheterization with Dr. Raymundo Rodriguez on 05/13/19. At that time, per report, left main was normal in size, it bifurcated into the LAD and circumflex. There was no evidence of stenosis. LAD normal in size. It gave off to 2 diagonal vessels. LAD itself was occluded after the second diagonal. Proximal portion of the LAD had 90% stenosis. First diagonal vessel was a small atretic vessel. Second diagonal vessel had previously been a large branch vessel off the LAD. Today's images show a small atretic vessel that had multiple stenoses and was subtotally occluded. Left circumflex normal in size, gave off to 3 obtuse marginal branches. The proximal circ was without disease. The first obtuse marginal branch had 90% lesion. The inferior branch was a 3-mm vessel. Today, the superior branch was subtotally occluded. The inferior branch was stable. Second and third obtuse marginal branches were without disease. The circumflex itself did not have any significant disease. Right coronary artery was an occluded vessel with fipae-ni-dnuzb collaterals, which were minimal. Saphenous vein graft to right coronary artery was patent. Normal filling of the PDA. There was no retrograde filling of the right coronary artery. After the PDA, the saphenous vein graft was occluded to the posterolateral branch. Saphenous vein graft to first diag was occluded at its origin. Saphenous vein graft to OM1, OM2 was occluded at its origin. COLEMAN to LAD was open and patent. Due to critical stenosis of first obtuse marginal of the left circumflex 90% stenosis, anatomy was reviewed with Dr. Vaca who proceeded with drug-eluting stent placement to left circumflex artery. There was distal edge dissection that was covered with 2.5 x 16 mm drug-eluting stent. COMPLICATIONS: Distal circ dissection covered with drug-eluting stent, otherwise none. COURSE OF THE HOSPITAL STAY: This is a pleasant 58-year-old male patient who follows Dr. Raymundo Rodriguez of our practice with a known history of coronary artery disease with CABG in 2018, hypertension, hyperlipidemia, who was evaluated in our practice on 05/07/19. At that time, the patient was complaining of increased fatigue with decreased exercise capacity. Apparently, he then started to have chest pain. He was risk stratified with a stress test that was reportedly abnormal suggestive of ischemia. Thus he presented to [facility] on 05/13/19 for elective cardiac catheterization. Prior to having procedure performed, the patient had blood work on 05/13/19. At that time, white count 5.6, platelets 237, hemoglobin 14.9, sodium 136, potassium 4.4 , creatinine 1.06. He underwent the above mentioned procedure with interventions of circumflex and was transferred to the ICU postprocedure for evaluation. The patient did have reproduction of chest pain with dissection, thus cardiac enzymes were evaluated. Troponin peaked at 0.52 and has since been trending down. The patient has not had any reoccurrence of chest pain, has been stable and asymptomatic. Of note, his blood pressure has been elevated , thus atenolol 12.5 mg a day was restarted which will hopefully help reduce his ventricular ectopy that was noted on telemetry. Please note, he has not had any nonsustained VT. The patient has been up and ambulating without difficulty. He denies any right groin access pain or discomfort. There was slight oozing at the access site yesterday after the procedure; however, today on examination, he has strong palpable femoral pulse, no thrill, no hematoma, no oozing or bleeding, thus pressure dressing was removed and a 2 x 2 dressing was applied. Today's blood work, white count 6.5, hemoglobin 13.4, hematocrit 40, platelets 244, INR 1.01. Sodium 136, potassium 4.2, chloride 106, carbon dioxide 24, BUN 17, creatinine 0.88. Due to early graft failure, thrombophilia evaluation has been ordered and is pending. I spoke to chemistries, they said it will take approximately 7 days for thrombophilia evaluation to be resulted. Thus this will need to be followed up in patient's upcoming appointment on 05/20 with Kinsey Layton. The patient is stable and is ready to be discharged home. Prescriptions for Brilinta and nitroglycerin have been sent to his pharmacy. In addition, the patient will go home with free 30-day supply of Brilinta. Pending no complications, discharge date and time will be later today. FOLLOWUP APPOINTMENTS: The patient has a followup appointment with Dr. Nobles in 7 to 10 days. The patient is to follow up with Kinsey Layton on 05/20/19 at 0915. DISCHARGE MEDICATIONS: Include: 1. Aspirin 81 mg a day. 2. Atenolol 12.5 mg a day. 3. Lipitor 40 mg a day. 4. Gabapentin 600 mg p.o. q.h.s. 5. Lisinopril 5 mg a day. 6. Sublingual nitroglycerin as needed. 7. Brilinta 90 mg p.o. b.i.d. 8. Ambien 10 mg p.o. q.h.s. p.r.n. DISCHARGE BLOOD WORK: None. DRIVING RESTRICTIONS: No driving for 24 hours. LIFTING RESTRICTIONS: No lifting more than 5 to 10 pounds for 3 to 5 days. The patient may shower starting today; however, he is aware to not soak right groin access site or take a bath/go swimming. I reiterated the importance of medication compliance specifically aspirin and Brilinta given recent stent deployment. He is aware to not take more than aspirin 81 mg a day and is aware to not miss any dosages of Brilinta therapy due to risk of in-stent thrombosis. Dr. Gill Vaca has personally seen and examined the patient and agrees with the above assessment and plan. MARGARETTE RUIZ NP [id number]/[facility] #: [id number] [facility] CENTERFanta
[2019-05-14] MEDS ORDERED: Atorvastatin* 40 MG TAB PO SCH (17:00)
--- NOTE | 2019-05-14 21:15 | PRO ---
CC: Dr. Nobles; Dr. Rodriguez; Dr. Jamison * STENT REPORT: DATE OF PROCEDURE: 05/13/19 PRIMARY CARE PHYSICIAN: Dr. Nobles. PRINCIPAL PROCESS ENGINEER: Dr. Rodriguez. CARDIAC SURGEON: Dr. Jamison. PROCEDURE: 1. Stent placement, circumflex OM. 2. Diagnostic catheterization by Dr. Rodriguez, see his report for full details. HISTORY: A 58-year-old male with bypass grafting approximately 8 months ago with the COLEMAN to the LAD, sequential vein graft to 2 branches of a marginal, a single vein graft to a diagonal, and a sequential vein graft to the RCA, acute marginal sequenced to the RPDA. He now returns with exercise limitation, exertional angina, and anterolateral ischemia on imaging. Diagnostic catheterization by Dr. Rodriguez revealed a patent COLEMAN to the LAD, occluded vein graft to the diagonal, occluded vein graft to the 2 circumflex OM branches, and vein graft patent to the RCA acute marginal branch with subsequent occlusion of the vein to the RPDA. With occlusion of the graft to the circumflex, his proximal OM stenosis is not revascularized. PROCEDURE ACCESS: Right common femoral established by Dr. Rodriguez. Angiogram showed a sheath in segment 2, closure was performed with Angio-Seal. ADDITIONAL MEDICATIONS: 1. Brilinta 180 mg p.o. loading dose. 2. Heparin 8000 units IV. 3. IV Valium. 4. IV Versed. 5. Nitroglycerin total 600 mcg IA. GUIDING CATHETER: 6FVL 3.5, wire 14 BMW, which was used to deploy a 2.75 x 12 Synergy drug-eluting stent in the circumflex OM stenosis, it was then post dilated with a 2.75 x 8 NC balloon at the distal end where the stent was somewhat undersized up to 20 atmospheres for 30 seconds, and then at the proximal end where the vessel is smaller to 16 atmospheres for 30 seconds. After balloon deflation, there was a distal dissection refractory to IC nitroglycerin, this was covered with a 2.5 x 16 Synergy drug-eluting stent, with attempts to not to nursing home the marginal side branch ostium in case that needs future intervention. Because of geometry and anatomy, it was very difficult to isolate the relevant segment and the origin of the side branch in 1 view. The dissection area was then observed with a repeat angiogram without any change. He remained asymptomatic with resolution of the dissection. The procedure was terminated, hemostasis achieved with right common femoral artery Angio-Seal. CONCLUSION: 1. Early graft failure, see Dr. Rodrgiuez's report for full details. 2. Successful stenting of obtuse marginal, with subsequent distal dissection covered with the second stent. If he remains symptomatic, one could consider PCI of the bypassed [place] other marginal branch, as well as the diagonal, which on pre-bypass films were much larger than evident today, and correspond to the area of ischemia. [id number]/[facility] #: [id number] [facility]ITAL[facility]anta
== END 2019-05-14 12:38 | disposition home or self-care (01) ==
LOC: CHICATH 08:09 → ICU 17:06
PROVIDERS: ADMIT Internal Medicine Cardiovascular Disease; ATTEND Specialist
DX: I25.110 Atherosclerotic heart disease of native coronary artery with unstable angina pectoris (principal); R06.02 Shortness of breath; R94.39 Abnormal result of other cardiovascular function study; R07.9 Chest pain, unspecified; Z95.5 Presence of coronary angioplasty implant and graft; I10 Essential (primary) hypertension; E78.5 Hyperlipidemia, unspecified; Z79.82 Long term (current) use of aspirin; Z79.899 Other long term (current) drug therapy
CPT/HCPCS: 36415; 80048; 82550; 84484; 85025; 85303; 85306; 85347; 85610; 85613; 85730; 87641; 93005; 93455; 99156; 99157; A9270-GY; C1760; C1769; C1876; C1887; C9600-LC; G0378; J0461; J1644; J2250; J3010